=== PATIENT | male | born 1945 | race Caucasian/White ===

== ENCOUNTER 2016-11-26 07:01 | Outpatient (CLI) | payer BC, MEDICARE ==
[~2016-11-26] VITALS: Ht 188 cm; Wt 96.2 kg
--- NOTE | ~2016-11-26 | CATH ---
Peripheral Diagnostic + Interventional Report Demographics Patient Name HERNESTO Rodriguez Gender Male Date of 1945 Age 71 year(s) Patient Number [id number] Date of Study 11/26/2016 Visit Number [id number] Room Number G6399 Corporate ID Ht 188 cm Wt 96.2 kg [facility] Primary [facility] Physician Tabatha MATOS Performing [facility] Secondary Physician Tabatha MATOS Physician Diagnostic [facility] Assisting [facility] Physician Tabatha MATOS Physician Interventional Kentrell Lousi MD Physician Physician Deny Cylinder Grinder Tabatha MATOS Findings and Conclusions Peripheral Findings and Conclusions Distal aorta without any significant stenosis or aneurysm. Rt CI, left CI, Right and left external and internal iliac without any luminal obstruction. Right SFA occluded at the proximal portion, [employer]ER and reconstitutes in the distal portion via collaterals from profunda. Right popliteal a essentially normal, there is single vessel run off via peroneal a, the PT and AT are occluded in the proximal portion. Rt SFA is completely occluded in the distal portion and fills via collaterals from the profunda and reconstitutes at the level of the distal SFA, there is 1 vessel run off on the right side, via the peroneal artery on the right side. Peripheral Recommendations Pt has lifestyle limiting claudication with severe symptoms after walking 1/4 block. Re; revascularizing and attempt to open the left SFA [employer]ER. s/p successful ballooning and stenting of the proximal and mid to distal sfa with self expanding stents. asa and plavix, statins and [place] i as tolerated. will stage for SFA intervention on the right side given symptoms of intermittent claudication on the right side as well. I will see patient in clinic and check creatinine and if he has intermittent claudication symptoms affecting his activities, I will then discuss with patient regarding SFA intervention on the right side. Procedure Description The patient was brought to the diagnostic cardiac catheterization-EP laboratory in the fasting, non-sedated state. Informed consent was obtained in the written and verbal form after the risks and benefits were explained. The patient had no further questions and agreed to proceed. The planned puncture-incision site(s) were shaved and prepped with ChloraPrep. After a three minute dry time the patient was draped in the usual sterile manner. Conscious sedation and pain control medications were delivered by a registered nurse under physician guidance. Surface ECG rhythm, blood pressure measurement, supplemental oxygen, and pulse oximetry were monitored throughout the procedure. Ultrasound was used to evaluate vessel patency and to aid in access. Arterial access. The access site was infiltrated with lidocaine. The vessel was entered with the Seldinger technique. A sheath was advanced into the vessel and used for catheter placement. Abdominal Angiography: A catheter was positioned in the abdominal aorta. Contrast was injected and images were obtained. Selective Lower Extremity Angiography: Under fluoroscopic guidance a catheter was placed. Contrast was injected and images were obtained. Balloon Dilatation: A wire was advanced across the lesion. The balloon catheter was placed across the lesion and inflated. Stent Placement: A wire was advanced across the lesion. The stent was then placed across the lesion and deployed. Hemostasis: The sheath was removed and an angioseal was placed. Hemostasis was achieved. The patient was transferred to [facility] with continuous monitoring via cart accompanied by a nurse. The patient left the laboratory in stable condition. Peripheral Procedure Description SFA intervention: 6Fr Destination sheath up and over Heparin for anticoagulation trailblazer microcatheter and lesion crossed using glide wire Gladius wire placed distally in popliteal a SFA ballooning using 4.0 nanocross balloon throughout entirety of lesion at 8 mariano, followed by 5.0 evercross balloon at 10 mariano, this resulted in flow limiting dissection requiring stenting of the SFA using self expanding 6.0 entrust stents. Successful recanalization of the SFA [employer] TE[employer]ER with 2 vessel run (peroneal and AT) off after stenting. Thank you Dr. Pfeiffer. Diagnostic Cath Status: Elective Procedure Procedure Type Peripheral Cath Diagnostic Procedure:Aortogram w/Runnoffs, Lower Extremity Angio:, Bilateral Peripheral vascular Intervention:PV Stent Indications: Peripheral vascular disease. The procedure was explained in detail to the patient. Risks, complications and alternative treatments were reviewed. Written consent was obtained. Medications Reviewed with Patient prior to Procedure. Angiographic Findings Peripheral Arteries and Lesion Findings Superficial Femoral, Left: Lesion on Superficial Femoral, Left: Culprit lesion. Devices used - .014 x 300 Gladius Wire. Number of passes: 1. - Nanocross Balloon 4.0 x 200. Diameter: 4 mm. Length: 210 mm. 3 inflation(s) to a max pressure of: 8 mariano. - Evercross Balloon 5.0 x 120. Diameter: 5 mm. Length: 120 mm. 3 inflation(s) to a max pressure of: 10 mariano. - Evercross Balloon 5.0 x 60. 5 inflation(s) to a max pressure of: 10 mariano. - 6.0 x 80 Entrust Stent. 1 inflation(s) - 6.0 x 60 Entrust Stent. 1 inflation(s) - 6.0 x 120 Entrust Stent. 1 inflation(s) - 6.0 x 40 Entrust Stent. 1 inflation(s) - Evercross Balloon 6.0 x 40. Diameter: 6 mm. Length: 40 mm. 1 inflation(s) to a max pressure of: 7 mariano. Procedure Data Procedure Date Date: 11/26/2016Start: 09:12 AMEnd: 11:07 AM Entry Locations - Retrograde Percutaneous access was performed through the Right Femoral artery (Primary location). A 5 Fr sheath was inserted. Hemostasis was successfully obtained using Angio-Seal STS PLUS ([employer] [facility]). Closure Comments: Deployed by Kiko Ward.. Procedure Medications Order and Administration + + + + + !Time !Medication !Dosage !Route ! + + + + + !11/26/2016 08:59 AM !Versed !1 mg !I.V. ! + + + + + !11/26/2016 08:59 AM !Fentanyl !25 mcg !I.V. ! + + + + + !11/26/2016 09:02 AM !Ancef !2 g !I.V. ! + + + + + !11/26/2016 09:06 AM !Versed !1 mg !I.V. ! + + + + + !11/26/2016 09:14 AM !Oxygen !2 l/min !NC ! + + + + + !11/26/2016 09:32 AM !Heparin (ACC_3) !2000 units !I.V. bolus ! + + + + + !11/26/2016 09:33 AM !Fentanyl !25 mcg !I.V. ! + + + + 11/26/2016 09:38 AM !Versed !1 mg !I.V. ! + + + + + 11/26/2016 09:43 AM !Heparin (ACC_3) !3000 units !I.V. bolus ! + + + + + !11/26/2016 09:51 AM !Fentanyl !50 mcg !I.V. ! + + + + + 11/26/2016 10:13 AM !Heparin (ACC_3) !2000 units !I.V. bolus ! + + + + + !11/26/2016 10:25 AM !Fentanyl !25 mcg !I.V. ! + + + + + !11/26/2016 10:55 AM !Fentanyl !25 mcg !I.V. ! + + + + + !11/26/2016 10:58 AM !Protamine !30 mg !I.V. ! + + + + + Devices Used - A5 Fr. Omni Flush Catheter 70cmwas used for:Lower Extremity. - A5 Fr. TrailBlazer .035 x 90was used for:Lower Extremity. Contrast Material - Isovue [id number] ml Fluoroscopy Time: Diagnostic: 32:48 minutes. Total: 32:48 minutes. Fluoroscopy Dose: Diagnostic: 491 mGy. Total: 491 mGy. Estimated Blood Loss: 15 ml. Medical History Allergies - No known allergies. Risk Factors The patient risk factors include:peripheral arterial disease, hypertension and orally-treated diabetes mellitus. Admission Data Admission Date: 11/26/2016 Admission Time: 07:01 AM Admit Source: Other Insurance Payors: Private health insurance. Hemodynamics Condition: Rest O2 Consumption: Estimated: 259.79Heart Rate: 73 bpm Pressures (mmHg) +-----+ + !Site !Pressure ! +-----+ + !AO !192/99 (134) ! +-----+ + !AO !181/100 (134) ! +-----+ + Shunts Oxygen Values O2 Capacity 198.56 O2 Consumption 259.79 Discharge Data Discharge Date: 11/26/2016 Hospital Status: Outpatient Signatures dtt: TABATHA BAUER dtd: 11/26/16 0912 Physician Self Edit
[~2016-11-26 07:01] MED LIST: ACTOS30 MG PO; ASPIRIN EC81 MG PO; GLUCOPHAGE500 MG PO; LIPITOR40 MG PO; NORVASC10 MG PO; PRINIVIL OR ZES10 MG PO
[2016-11-26 07:56] LABS: BASOPHIL # 0.1 K/uL (0.0-0.2); BASOPHIL % 1.3 %; EOSINOPHIL # 0.2 K/uL (0.0-0.5); EOSINOPHIL % 3.1 %; HEMATOCRIT 42.5 % (37.0-53.0); HEMOGLOBIN 14.6 g/dL (11.0-16.0); IMMATURE GRANULOCYTE % 0.4 %; LYMPHOCYTE # 2.4 K/uL (0.8-4.0); LYMPHOCYTE % 33.6 %; MCHC 34.4 gm/dL (32.0-36.5); MCV 87.3 fl (83.0-98.0); MONOCYTE # 0.7 K/uL (0.0-1.0); MONOCYTE % 9.3 %; MPV 10.3 fl (9.4-12.4); NEUTROPHIL # (ANC) 3.7 K/uL (1.4-9.0); NEUTROPHIL % 52.3 %; NRBC % 0 /100WBC (0-0.00); PLATELET COUNT 207 K/uL (150-450); RBC 4.87 M/uL (3.50-5.50); RDW-CV 12.9 % (11.9-14.6)
[2016-11-26 08:14] LABS: ALBUMIN 3.7 gm/dL (3.5-5.0); ANION GAP 13.2 (10.0-19.0); POTASSIUM 4.2 mMol/L (3.7-5.1); TOTAL BILIRUBIN 0.4 mg/dL (0.0-1.5); TOTAL PROTEIN 7.4 g/dL (6.0-8.4)
[2016-11-26] MEDS ORDERED: PLAVIX75 MG PO (11:52)
== END 2016-11-26 14:25 | disposition disaster alternative care site (69) ==
LOC: GCAT 07:01 → GPCU 07:01 → GCAT 14:25
PROVIDERS: Internal Medicine Interventional Cardiology
DX: I73.9 Peripheral vascular disease, unspecified (principal); I77.1 Stricture of artery
CPT/HCPCS: C1725; C1760; C1769; C1876; C1887; J0690; J1644; J2001; J2250; J2720; J3010; J7030